=== PATIENT | male | born 1950 ===

== ENCOUNTER 2018-07-19 19:15 | Emergency (ER) | payer OTHER ==
[~2018-07-19] VITALS: Ht 180.3 cm; Wt 81.6 kg
[~2018-07-19 19:15] MED LIST: EXFORGE 10-3201 TAB PO
== END 2018-07-20 01:57 | disposition home or self-care (01) ==
LOC: ER 19:15
DX: K52.89 Other specified noninfective gastroenteritis and colitis (principal)

== ENCOUNTER 2019-12-16 08:25 | Emergency (ER) | payer OTHER ==
[~2019-12-16] VITALS: Ht 180.3 cm; Wt 83.9 kg
[2019-12-16] MEDS ORDERED: DICLOFENAC SODI75 MG PO (09:21)
== END 2019-12-16 11:21 | disposition home or self-care (01) ==
LOC: ER 08:25
DX: S60.211A Contusion of right wrist, initial encounter (principal); W18.39XA Other fall on same level, initial encounter; Y93.89 Activity, other specified; Y92.098 Other place in other non-institutional residence as the place of occurrence of the external cause; Y99.8 Other external cause status

== ENCOUNTER 2021-11-10 12:45 | Emergency (ER) | payer OTHER ==
[~2021-11-10] VITALS: Ht 177.8 cm; Wt 83.9 kg
[~2021-11-10 12:45] MED LIST changes: +DICLOFENAC SODI75 MG PO; +NEURONTIN800 MG PO; +NORVASC10 MG PO
[2021-11-10] MEDS ORDERED: AMOX-CLAV 875-1 EACH PO (15:42)
[2021-11-10] MEDS ORDERED: MUPIROCIN22 GM TOP (15:43)
== END 2021-11-10 16:05 | disposition home or self-care (01) ==
LOC: ER 12:45
DX: T81.42XA Infection following a procedure, deep incisional surgical site, initial encounter (principal); L08.9 Local infection of the skin and subcutaneous tissue, unspecified; I10 Essential (primary) hypertension